=== PATIENT | male | born 1930 | race Caucasian/White ===

== ENCOUNTER 2016-08-28 17:04 | Emergency (ER) | payer MEDICARE, MEDICAID ==
[2016-08-28] MEDS ORDERED: EPINEPHrine 1MG/10ML SYRINGE 1.5IN ONE (17:05)
[2016-08-28] MEDS ORDERED: SODIUM BICARBONATE 8.4% INJ 50 ML SYRINGE ONE (17:05)
[2016-08-28] MEDS ORDERED: NOREPINEPHRINE 4 MG/4 ML AMP ONE (17:05)
[2016-08-28] MEDS ORDERED: ATROPINE SULF 1MG/10ML SYRINGE (J0461) ONE (17:05)
[2016-08-28 18:22] LABS: DIFF SLIDE NUMBER 332; MEAN CORPUSCULAR HEMOGLOBIN 28.3 pg (27.0-33.0); MEAN CORPUSCULAR HGB CONC 27.7 g/dl (32.0-36.5); MEAN CORPUSCULAR VOLUME 102.4 fl (80.0-96.0); RED CELL DISTRIBUTION WIDTH 13.2 % (11.5-14.5); WHITE BLOOD COUNT 4.9 K/mm3 (4.0-10.0)
--- NOTE | 2016-08-28 18:26 | ECGEPIP ---
Stationary ECG Study [facility] - ED Test Date: 2016-08-28 Pat Name: AD BECK Department: Room: - Gender: M Rating Officer: [facility] : 1930 Requested By: NIESHA Russo Order Number: [id number] Reading MD: Chris Connors Measurements Intervals [place] Rate: 79 P: RI: 0 QRS: 80 QRSD: 162 T: 96 QT: 461 QTc: 531 Interpretive Statements ATRIAL FIBRILLATION INTRAVENTRICULAR CONDUCTION DELAY MARKED ST ELEVATION, CONSIDER ANTERIOR INJURY ACUTE IA NO PRIORS Electronically Signed On 08-28-2016 18:26:27 EST by Chris oCnnors
[2016-08-28 18:43] LABS: CALCIUM LEVEL 7.8 MG/DL (8.8-10.2); CREATININE FOR GFR 2.33 MG/DL (0.70-1.30); GLOMERULAR FILTRATION RATE 28.5 (>35); MAGNESIUM LEVEL 3.6 MG/DL (1.8-2.4); PHOSPHORUS LEVEL 8.3 MG/DL (2.5-4.9)
[2016-08-28 18:49] LABS: PLATELET COUNT, AUTOMATED 69 k/mm3 (150-450); POTASSIUM SERUM 6.4 MEQ/L (3.5-5.1)
[2016-08-28 19:02] LABS: BANDS 3 % (< 11); CORRECTED WHITE BLOOD COUNT 4.5 K/mm3; NUCLEATED RED BLOOD CELL 10 % (0-0)
[2016-08-28 19:03] LABS: BURR CELLS 1+; HYPOCHROMASIA 1+; POIKILOCYTOSIS 1+; SCHISTOCYTES 1+; TOXIC VACUOLATION 1+
--- NOTE | 2016-08-28 19:39 | EDDOCDS ---
Physician Documentation [facility] Name: Gary Ash Age: 86 yrs Sex: Male : 1930 Arrival Date: 08/28/2016 Time: 17:04 Bed 2 Private MD: Disposition: Patient pronounced on 08/28/16 18:04 by Tyson Lamas. Impression: Cardiac arrest. Historical: - Allergies: PENICILLINS; - Social history: Smoking status: unknown if patient ever smoked tobacco. Patient is speech impaired. - Family history: Not pertinent. - : Unable to assess if pt is on anticoagulants. Unable to Verify Home Med List with the patient / caregiver. Vital Signs: 08/28 17:31 BP 41 / 21 (auto/); hs1 17:47 BP 67 / 18 (auto/); hs1 17:52 BP 66 / 28 (auto/); hs1 17:52 Pulse 88 MON; Pulse Ox 84% ; hs1 18:04 Pulse 0 MON; js13 Procedures: 18:41 Intubation: Ventilated with 100% NRB prior to procedure. Intubated orally using br1 Glidescope with 7.5 Fr. ETT. Successful on second attempt. Ventilated with Ambu bag. ventilator. Placement verified by CXR, CO2 detector w/ + color change, auscultating bilateral breath sounds, Patient tolerated well. 18:43 CPR: See CPR flow sheet. Initial patient assessment: unresponsive, pupils fixed & br1 dilated, no respiratory effort, intubated, Ambu ventilation, pulses present w/ compressions, The presenting cardiac rhythm is asystole. the patient was intubated prior to arrival, Compressions: began prior to arrival. Meds given: See Meds list. despite ED evaluation and treatment, the patient . CPR was stopped at 18:04. MDM: 17:53 Talent Acquisition Sourcer/Pulse Ox/q 30 min VS ordered. br1 17:53 IV Saline Lock ordered. br1 17:53 Rhythm Strip to chart ordered. br1 17:53 Undress patient appropriately for examination ordered. br1 17:53 -Blood Culture (Adults Only), peripheral from different site, or from device/port/PICC br1 etc. if present ordered. 17:53 NS 0.9% 1000 ml IV at bolus once ordered. br1 17:53 NS 0.9% 500 ml IV at bolus once ordered. br1 17:54 Basic Metabolic Profile Ordered. EDMS 17:54 CBC with Diff Ordered. EDMS 17:54 Cardiac Injury Profile Ordered. EDMS 17:54 Troponin Ordered. EDMS 17:54 -Blood Culture Ordered. EDMS 17:54 portable chest Ordered. EDMS 17:54 Norepinephrine (8mg/500mL D5W, 2mcg/min) 2 mcg/min IVPB at calculated rate continuous; br1 Titrate 2mcg/min q5min to maintain SBP > 90mmHg. Max rate 20 mcg/min ordered. 17:54 ECG WITH READING ER PHYS+CARDIAG ordered. EDMS 17:54 León ordered. br1 17:56 Urinalysis Ordered. EDMS 17:56 Urine Culture Ordered. EDMS 17:58 MAGNESIUM LEVEL Ordered. EDMS 17:58 PHOSPHOROUS LEVEL Ordered. EDMS 17:58 -Arterial Blood Gas Ordered. EDMS 18:04 EPINEPHrine (1:10,000) 1 mg IVP once ordered. hs1 18:04 EPINEPHrine (1:10,000) 1 mg IVP once ordered. hs1 18:04 EPINEPHrine (1:10,000) 1 mg IVP once ordered. hs1 18:04 EPINEPHrine (1:10,000) 1 mg IVP once ordered. hs1 18:04 EPINEPHrine (1:10,000) 1 mg IVP once ordered. hs1 18:04 EPINEPHrine (1:10,000) 1 mg IVP once ordered. hs1 18:04 Sodium Bicarbonate 1 amp IVP once ordered. hs1 18:04 Sodium Bicarbonate 1 amp IVP once ordered. hs1 18:04 Atropine 0.5 mg IVP once ordered. hs1 18:04 Atropine 0.5 mg IVP once ordered. hs1 18:04 Atropine 0.5 mg IVP once ordered. hs1 18:50 DIFFERENTIAL NO CHARGE Ordered. EDMS 18:51 PLATELET ESTIMATE Ordered. EDMS 18:55 Basic Metabolic Profile Reviewed. br1 18:55 CBC with Diff Reviewed. br1 18:55 Cardiac Injury Profile Reviewed. br1 18:55 Troponin Reviewed. br1 18:55 MAGNESIUM LEVEL Reviewed. br1 18:55 PHOSPHOROUS LEVEL Reviewed. br1 18:55 Fingerstick Blood Sugar Reviewed. br1 19:16 [facility] Payment Agreement was scanned into [employer] and attached to record. gjb 19:16 Financial registration complete. gjb Administered Medications: 15:32 Drug: Atropine 0.5 mg [atropine 0.1 mg/mL injection syringe (5 mL)] Route: IVP; Site: hs1 left forearm; 15:33 Drug: EPINEPHrine 1 mg [epinephrine 0.1 mg/mL injection syringe (10 mL)] Route: IVP; hs1 Site: left forearm; 15:33 Drug: Sodium Bicarbonate 1 amp Route: IVP; Site: left forearm; hs1 17:09 Drug: EPINEPHrine 1 mg [epinephrine 0.1 mg/mL injection syringe (10 mL)] Route: IVP; hs1 Site: left forearm; 17:14 Drug: EPINEPHrine 1 mg [epinephrine 0.1 mg/mL injection syringe (10 mL)] Route: IVP; hs1 Site: left forearm; 17:19 Drug: EPINEPHrine 1 mg [epinephrine 0.1 mg/mL injection syringe (10 mL)] Route: IVP; hs1 Site: left forearm; 17:23 Drug: EPINEPHrine 1 mg [epinephrine 0.1 mg/mL injection syringe (10 mL)] Route: IVP; hs1 Site: left forearm; 17:33 Drug: NS 0.9% 500 ml [sodium chloride 0.9 % intravenous solution] Route: IV; Rate: hs1 bolus; Site: right antecubital; 17:37 Drug: Atropine 0.5 mg [atropine 0.1 mg/mL injection syringe (5 mL)] Route: IVP; Site: hs1 left forearm; 17:46 Drug: EPINEPHrine 1 mg [epinephrine 0.1 mg/mL injection syringe (10 mL)] Route: IVP; hs1 Site: left forearm; 17:46 Drug: Sodium Bicarbonate 1 amp Route: IVP; Site: left antecubital; hs1 17:46 Drug: Atropine 0.5 mg [atropine 0.1 mg/mL injection syringe (5 mL)] Route: IVP; Site: hs1 right antecubital; 17:56 Drug: Norepinephrine (8mg/500mL D5W, 2mcg/min) 2 mcg/min [norepinephrine bitartrate 1 hs1 mg/mL intravenous solution] Route: IVPB; Rate: calculated rate; Site: left forearm; 17:57 Drug: NS 0.9% 1000 ml [sodium chloride 0.9 % intravenous solution] Route: IV; Rate: hs1 bolus; Site: left antecubital; Signatures: Dispatcher MedHost EDMS Tyson Lamas MD MD br1 Enriqueta Evans RN RN hs1 Rebeka ClemonsRN RN js13 Tonie Kellogg KimRN RN kas2 The chart was reviewed and I authenticate all verbal orders and agree with the evaluation and treatment provided.Corrections: (The following items were deleted from the chart) 17:58 17:54 MAGNESIUM LEVEL+LAB ordered. EDMS EDMS 17:58 17:54 PHOSPHOROUS LEVEL+LAB ordered. EDMS EDMS Attachments: 19:16 [facility] Payment Agreement gjb MTDD
--- NOTE | 2016-08-28 19:39 | EDDOCDS ---
Nurse's Notes [facility] Name: Gary Ash Age: 86 yrs Sex: Male : 1930 Arrival Date: 08/28/2016 Time: 17:04 Bed 2 Private MD: Diagnosis: Cardiac arrest Presentation: 08/28 17:08 Presenting complaint: EMS states: found unresponsive at home RR of 40. Public health hs1 nurse was type inspector of 911. Per EMS Nurse stated fever of 102 earlier today. Patient unresponsive and run of Vtach noted at 1645 per EMS. Method of arrival: Ambulance: direct to room. Care prior to arrival: See EMS report. Compressions began prior to arrival. 17:08 Acuity: KEYANNA Level 1 hs1 Historical: - Allergies: PENICILLINS; - Social history: Smoking status: unknown if patient ever smoked tobacco. Patient is speech impaired. - Family history: Not pertinent. - : Unable to assess if pt is on anticoagulants. Unable to Verify Home Med List with the patient / caregiver. Screenin:23 Abuse/DV Screen: Unable to Assess. Nutritional screening: Unable to Assess. hs1 17:43 Screening information is obtained from information given by nurses and caregivers. . hs1 Fall risk: Unable to Assess. Assistance ADL's: Requires assistance with. Abuse/DV Screen: The patient / caregiver reports he/she is: pt cannot be assessed for living situation at this time. Advance Directives: Unable to assess Advance Directive status due to pt condition. home support is adequate. Assessment: 17:05 CPR assessment: unresponsive. Cardiac rhythm is asystole. Neurological: No deficits hs1 noted. 17:09 CPR assessment: unresponsive, pulses present w/ compressions. Cardiac rhythm is hs1 asystole. 17:12 CPR assessment: no respiratory effort, intubated, Ambu ventilation, pulses present w/ hs1 compressions. Cardiac rhythm is asystole. 17:14 CPR assessment: unresponsive, pupils fixed & dilated, no respiratory effort, intubated, hs1 Ambu ventilation, pulses present w/ compressions. Cardiac rhythm is asystole. 17:19 CPR assessment: pupils fixed & dilated, no respiratory effort, intubated, Ambu hs1 ventilation, pulses present w/ compressions. Cardiac rhythm is asystole. Cardiovascular: Rhythm is PEA. Derm: Skin is dusky, pale. 17:23 CPR assessment: unresponsive, Ambu ventilation, pulses present w/ compressions. Cardiac hs1 rhythm is PEA. Cardiovascular: Edema is 3+ to left ankle, left foot, left toes, right ankle, right foot and right toes pitting to left ankle, left foot, left toes, right ankle, right foot and right toes Rhythm is PEA. 17:28 CPR assessment: unresponsive, pupils fixed & dilated, no respiratory effort, intubated, hs1 pulses present w/ compressions. Cardiac rhythm is PEA. Neurological: Level of Consciousness is unresponsive. 17:33 CPR assessment: no respiratory effort, intubated, Ambu ventilation, pulses present w/ hs1 compressions. Cardiac rhythm is Sinus Bradycardia. Neurological: Level of Consciousness is unresponsive. Respiratory: Airway via oral intubation. Derm: Skin is mottled, pale. 17:33 Cardiovascular: Pulses are palpable in carotid. hs1 17:37 Cardiac rhythm is Sinus Rhythm. Neurological: Level of Consciousness is unresponsive. hs1 Cardiovascular: Rhythm is sinus rhythm. Derm: Skin is dusky, mottled. 17:44 CPR assessment: pupils fixed & dilated, no respiratory effort, intubated, Ambu hs1 ventilation, pulses present w/ compressions. Cardiovascular: Pulses are palpable in carotid. 17:49 Cardiac rhythm is Sinus Bradycardia. Neurological: Level of Consciousness is hs1 unresponsive. Respiratory: Airway via oral intubation. Derm: Skin is dusky, mottled. 17:52 Cardiac rhythm is Cardiac rhythm is Sinus Rhythm. hs1 17:55 General: Appears emaciated. Cardiovascular: Rhythm is irregular. Respiratory: Airway hs1 via oral intubation. 18:04 General: Appears emaciated. General: TIME OF 1804. Neurological: Level of js13 Consciousness is unresponsive. Cardiovascular: Rhythm is asystole. Respiratory: Airway via oral intubation. Derm: Skin is dusky, mottled, pale. 19:07 General: Verbal report given by Khalida Hernandez RN, Assumed care of patient at this time.. kas2 Vital Signs: 17:31 BP 41 / 21 (auto/); hs1 17:47 BP 67 / 18 (auto/); hs1 17:52 BP 66 / 28 (auto/); hs1 17:52 Pulse 88 MON; Pulse Ox 84% ; hs1 18:04 Pulse 0 MON; js13 Vitals: 17:56 Log In Time N/A - ambulance arrival. hs1 ED Course: 17:05 Patient visited by Charity Enriquez, Etl Analyst. lbd 17:05 Rebeka Clemons,RN is Primary Nurse. lbd 17:05 Patient moved to Waiting lbd 17:05 Patient moved to 2 lbd 17:12 Assist provider with intubation with 7.5 Fr. ETT. via oral route. Set up intubation hs1 tray. Intubated by Niesha Lamas MD Placement verified by CO2 detector w/ + color change, auscultating bilateral breath sounds. 17:12 Maintain field IV. Dressing intact. Good blood return noted. Site clean & dry. Gauge & js13 site: 20 GAUGE RAC. 17:15 Inserted saline lock: 14 gauge 18 gauge in left forearm antecubital area and blood js13 collected. The patient tolerated the procedure well. BY MATT DEAN RN. 17:29 Niesha Lamas MD is Attending Physician. br1 17:29 Patient visited by Niesha Lamas MD. br1 18:16 Niesha Lamas MD is Pronouncing Provider. br1 18:26 EKG done. (by ED staff). Reviewed by Niesha Lamas MD. tmm1 19:02 EKG-ADULT Returned. EDMS 19:06 Rula Kumar RN is Primary Nurse. kas2 19:07 Patient visited by Rula Kumar RN. kas2 19:16 [facility] Payment Agreement was scanned into [employer] and attached to record. gjb 19:22 Primary Nurse role handed off by Rebeka Clemons,HARISH kb5 Administered Medications: 15:32 Drug: Atropine 0.5 mg [atropine 0.1 mg/mL injection syringe (5 mL)] Route: IVP; Site: hs1 left forearm; 15:33 Drug: EPINEPHrine 1 mg [epinephrine 0.1 mg/mL injection syringe (10 mL)] Route: IVP; hs1 Site: left forearm; 15:33 Drug: Sodium Bicarbonate 1 amp Route: IVP; Site: left forearm; hs1 17:09 Drug: EPINEPHrine 1 mg [epinephrine 0.1 mg/mL injection syringe (10 mL)] Route: IVP; hs1 Site: left forearm; 17:14 Drug: EPINEPHrine 1 mg [epinephrine 0.1 mg/mL injection syringe (10 mL)] Route: IVP; hs1 Site: left forearm; 17:19 Drug: EPINEPHrine 1 mg [epinephrine 0.1 mg/mL injection syringe (10 mL)] Route: IVP; hs1 Site: left forearm; 17:23 Drug: EPINEPHrine 1 mg [epinephrine 0.1 mg/mL injection syringe (10 mL)] Route: IVP; hs1 Site: left forearm; 17:33 Drug: NS 0.9% 500 ml [sodium chloride 0.9 % intravenous solution] Route: IV; Rate: hs1 bolus; Site: right antecubital; 17:37 Drug: Atropine 0.5 mg [atropine 0.1 mg/mL injection syringe (5 mL)] Route: IVP; Site: hs1 left forearm; 17:46 Drug: EPINEPHrine 1 mg [epinephrine 0.1 mg/mL injection syringe (10 mL)] Route: IVP; hs1 Site: left forearm; 17:46 Drug: Sodium Bicarbonate 1 amp Route: IVP; Site: left antecubital; hs1 17:46 Drug: Atropine 0.5 mg [atropine 0.1 mg/mL injection syringe (5 mL)] Route: IVP; Site: hs1 right antecubital; 17:56 Drug: Norepinephrine (8mg/500mL D5W, 2mcg/min) 2 mcg/min [norepinephrine bitartrate 1 hs1 mg/mL intravenous solution] Route: IVPB; Rate: calculated rate; Site: left forearm; 17:57 Drug: NS 0.9% 1000 ml [sodium chloride 0.9 % intravenous solution] Route: IV; Rate: hs1 bolus; Site: left antecubital; RT: 18:12 CPR Time: 60Minutes. cs15 Order Results: Lab Order: Basic Metabolic Profile; SPEC'M 08/28/16 17:40 Test: GLUCOSE, FASTING; Value: 98; Range: 83-110; Units: MG/DL; Status: F Test: BLOOD UREA NITROGEN; Value: 96; Range: 7-18; Abnormal: Above high normal; Units: MG/DL; Status: F Test: CREATININE FOR GFR; Value: 2.33; Range: 0.70-1.30; Abnormal: Above high normal; Units: MG/DL; Status: F Test: GLOMERULAR FILTRATION RATE; Value: 28.5; Range: >35; Abnormal: Below low normal; Status: F Test: SODIUM LEVEL; Value: 165; Range: 136-145; Abnormal: Above upper panic limits; Units: MEQ/L; Status: F Test: POTASSIUM SERUM; Value: 6.4; Range: 3.5-5.1; Abnormal: Above upper panic limits; Units: MEQ/L; Status: F Test: CHLORIDE LEVEL; Value: 127; Range: 98-107; Abnormal: Above high normal; Units: MEQ/L; Status: F Test: CARBON DIOXIDE LEVEL; Value: 18; Range: 21-32; Abnormal: Below low normal; Units: MEQ/L; Status: F Test: ANION GAP; Value: 20; Range: 8-16; Abnormal: Above high normal; Units: MEQ/L; Status: F Test: CALCIUM LEVEL; Value: 7.8; Range: 8.8-10.2; Abnormal: Below low normal; Units: MG/DL; Status: F Test Note: ; Units are mL/min/1.73 m2 Chronic Kidney Disease Staging per NKF: Stage I & II GFR >=60 Normal to Mildly Decreased Stage III GFR 30-59 Moderately Decreased Stage IV GFR 15-29 Severely Decreased Stage V GFR <15 Very Little GFR Left ESRD GFR <15 on INDUSTRIAL ORGANIZATIONAL PSYCHOLOGIST Lab Order: CBC with Diff; SPEC'M 08/28/16 17:40 Test: WHITE BLOOD COUNT; Value: 4.9; Range: 4.0-10.0; Units: K/mm3; Status: F Test: RED BLOOD COUNT; Value: 3.83; Range: 4.30-6.10; Abnormal: Below low normal; Units: M/mm3; Status: F Test: HEMOGLOBIN; Value: 10.8; Range: 14.0-18.0; Abnormal: Below low normal; Units: g/dl; Status: F Test: HEMATOCRIT; Value: 39.2; Range: 42.0-52.0; Abnormal: Below low normal; Units: %; Status: F Test: MEAN CORPUSCULAR VOLUME; Value: 102.4; Range: 80.0-96.0; Abnormal: Above high normal; Units: fl; Status: F Test: MEAN CORPUSCULAR HEMOGLOBIN; Value: 28.3; Range: 27.0-33.0; Units: pg; Status: F Test: MEAN CORPUSCULAR HGB CONC; Value: 27.7; Range: 32.0-36.5; Abnormal: Below low normal; Units: g/dl; Status: F Test: RED CELL DISTRIBUTION WIDTH; Value: 13.2; Range: 11.5-14.5; Units: %; Status: F Test: PLATELET COUNT, AUTOMATED; Value: 69; Range: 150-450; Abnormal: Below low normal; Units: k/mm3; Status: F Test: CORRECTED WHITE BLOOD COUNT; Value: 4.5; Units: K/mm3; Status: F Test: RED BLOOD COUNT; Value: 3.83; Range: 4.30-6.10; Abnormal: Below low normal; Units: M/mm3; Status: F Test: HEMOGLOBIN; Value: 10.8; Range: 14.0-18.0; Abnormal: Below low normal; Units: g/dl; Status: F Test: HEMATOCRIT; Value: 39.2; Range: 42.0-52.0; Abnormal: Below low normal; Units: %; Status: F Test: MEAN CORPUSCULAR VOLUME; Value: 102.4; Range: 80.0-96.0; Abnormal: Above high normal; Units: fl; Status: F Test: MEAN CORPUSCULAR HEMOGLOBIN; Value: 28.3; Range: 27.0-33.0; Units: pg; Status: F Test: MEAN CORPUSCULAR HGB CONC; Value: 27.7; Range: 32.0-36.5; Abnormal: Below low normal; Units: g/dl; Status: F Test: RED CELL DISTRIBUTION WIDTH; Value: 13.2; Range: 11.5-14.5; Units: %; Status: F Test: PLATELET COUNT, AUTOMATED; Value: 69; Range: 150-450; Abnormal: Below low normal; Units: k/mm3; Status: F Test: NEUTROPHILS; Value: 34; Range: 35-75; Abnormal: Below low normal; Units: %; Status: F Test: BANDS; Value: 3; Range: < 11; Units: %; Status: F Test: LYMPHOCYTES; Value: 58; Range: 16-52; Abnormal: Above high normal; Units: %; Status: F Test: MONOCYTES; Value: 2; Range: 0-8; Units: %; Status: F Test: ATYPICAL LYMPH; Value: 3; Range: 0-5; Units: %; Status: F Test: NUCLEATED RED BLOOD CELL; Value: 10; Range: 0-0; Abnormal: Above high normal; Units: %; Status: F Test: HYPOCHROMASIA; Value: 1+; Status: F Test: POIKILOCYTOSIS; Value: 1+; Status: F Test: SCHISTOCYTES; Value: 1+; Status: F Test: ESMER CELLS; Value: 1+; Status: F Test: TOXIC VACUOLATION; Value: 1+; Status: F Lab Order: Cardiac Injury Profile; [facility] 08/28/16 17:40 Test: CPK CREATINE PHOSPHOKINASE; Value: 191; Range: 39-308; Units: U/L; Status: F Test: CK-MB VALUE MASS; Value: 4.9; Range: 0.0-3.6; Abnormal: Above high normal; Units: NG/ML; Status: F Test: MB/CK RELATIVE INDEX; Value: 2.56; Range: < OR =4; Status: F Test Note: ; DIAGNOSIS CRITERIA MMB ng/ml Relative Index (RI) NON-AMI < or = 5 N/A REINOSO ZONE > 5 < or = 4 AMI > 5 > 4 Lab Order: Troponin; [facility] 08/28/16 17:40 Test: TROPONIN I; Value: 1.88; Range: < 0.10; Abnormal: Above upper panic limits; Units: NG/ML; Status: F Test Note: ; Troponin I Reference Interval for Siemens fflick LOCI: 99th Percentile= 0.00-0.045 ng/ml Risk Stratification: <= 0.10 ng/ml Decreased Risk for Adverse Clinical Events. 0.10-1.50 ng/ml Increased Risk for Adverse Clinical Events. Evaluation of additional criterion and/or repeat testing in 2-6 hours is suggested to rule out myocardial damage. >= 1.50 ng/ml Indicative of Myocardial Injury. Lab Order: MAGNESIUM LEVEL; [facility] 08/28/16 17:40 Test: MAGNESIUM LEVEL; Value: 3.6; Range: 1.8-2.4; Abnormal: Above high normal; Units: MG/DL; Status: F Lab Order: PHOSPHOROUS LEVEL; [facility] 08/28/16 17:40 Test: PHOSPHORUS LEVEL; Value: 8.3; Range: 2.5-4.9; Abnormal: Above high normal; Units: MG/DL; Status: F Lab Order: Fingerstick Blood Sugar; SPEC'M 08/28/16 17:29 Test: BEDSIDE GLUCOSE; Value: 94; Range: 83-110; Units: MG/DL; Status: F Lab Order: PLATELET ESTIMATE; SPEC'M 08/28/16 17:40 Test: PLATELET ESTIMATE; Value: MARKED DECREASE; Range: NORMAL; Status: F Radiology Order: EKG-ADULT Test: EKG-ADULT REASON FOR EXAMINATION: dysrhythmia; Stationary ECG Study; [facility] - ED; ; Test Date: 2016-08-28; Pat Name: GARY ASH Department:; Room: -; Gender: M 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 js13 17:43 Code Team Members : Niesha Lamas MD. hs1 18:17 Patient . br1 19:35 Discharge Assessment: Patient in ER department. Rhythm strips are placed in the [facility] patient chart. Outcome Patient . Patient : Time of 18:17 Pronounced by Niesha Lamas MD [place] [facility] [place] Condition: . 19:37 Patient left the ED. [facility] Signatures: Dispatcher Med[employer] EDMS Charity Enriquez, Etl Analyst Unit Andre Peres, AUTOMOBILE CLUB INFORMATION CLERK AUTOMOBILE CLUB INFORMATION CLERK [id number] Niesha Lamas MD MD br1 Enriqueta Evans RN RN hs1 Rebeka ClemonsRN RN js13 Rufina, Emma, AUTOMOBILE CLUB INFORMATION CLERK AUTOMOBILE CLUB INFORMATION CLERK [email or web address] Joel Barrientos,RT RT [email or web address] Tonie Kellogg Kim,RN RN kas2 Corrections: (The following items were deleted from the chart) 17:48 17:33 Cardiac rhythm is PEA hs1 hs1 MTDD
--- NOTE | 2016-08-29 19:01 | REP ---
CHEST, ONE VIEW: HISTORY: Cardiac arrest. Patchy densities are present in the lung, consistent with bilateral infiltrates or edema. The heart is upper limits of normal in size. The pulmonary vasculature is indistinct. An ET tube is present at the nubia. IMPRESSION: 1. Bilateral infiltrates or edema. 2. An ET tube is present at the level of the nubia. Signed by Nate Herron MD 08/30/2016 08:28 A
--- NOTE | 2016-08-30 20:38 | EDDOCDS ---
Physician Documentation [facility] Name: Gary Ash Age: 86 yrs Sex: Male : 1930 Arrival Date: 08/28/2016 Time: 17:04 Bed 2 Private MD: Disposition: Patient pronounced on 08/28/16 18:04 by Tyson Lamas. Impression: Cardiac arrest. Historical: - Allergies: PENICILLINS; - Social history: Smoking status: unknown if patient ever smoked tobacco. Patient is speech impaired. - Family history: Not pertinent. - : Unable to assess if pt is on anticoagulants. Unable to Verify Home Med List with the patient / caregiver. Vital Signs: 08/28 17:31 BP 41 / 21 (auto/); hs1 17:47 BP 67 / 18 (auto/); hs1 17:52 BP 66 / 28 (auto/); hs1 17:52 Pulse 88 MON; Pulse Ox 84% ; hs1 18:04 Pulse 0 MON; js13 Procedures: 18:41 Intubation: Ventilated with 100% NRB prior to procedure. Intubated orally using br1 Glidescope with 7.5 Fr. ETT. Successful on second attempt. Ventilated with Ambu bag. ventilator. Placement verified by CXR, CO2 detector w/ + color change, auscultating bilateral breath sounds, Patient tolerated well. 18:43 CPR: See CPR flow sheet. Initial patient assessment: unresponsive, pupils fixed & br1 dilated, no respiratory effort, intubated, Ambu ventilation, pulses present w/ compressions, The presenting cardiac rhythm is asystole. the patient was intubated prior to arrival, Compressions: began prior to arrival. Meds given: See Meds list. despite ED evaluation and treatment, the patient . CPR was stopped at 18:04. MDM: 17:53 Coordinator Cardiopulmonary Services/Pulse Ox/q 30 min VS ordered. br1 17:53 IV Saline Lock ordered. br1 17:53 Rhythm Strip to chart ordered. br1 17:53 Undress patient appropriately for examination ordered. br1 17:53 -Blood Culture (Adults Only), peripheral from different site, or from device/port/PICC br1 etc. if present ordered. 17:53 NS 0.9% 1000 ml IV at bolus once ordered. br1 17:53 NS 0.9% 500 ml IV at bolus once ordered. br1 17:54 Basic Metabolic Profile Ordered. EDMS 17:54 CBC with Diff Ordered. EDMS 17:54 Cardiac Injury Profile Ordered. EDMS 17:54 Troponin Ordered. EDMS 17:54 -Blood Culture Ordered. EDMS 17:54 portable chest Ordered. EDMS 17:54 Norepinephrine (8mg/500mL D5W, 2mcg/min) 2 mcg/min IVPB at calculated rate continuous; br1 Titrate 2mcg/min q5min to maintain SBP > 90mmHg. Max rate 20 mcg/min ordered. 17:54 ECG WITH READING ER PHYS+CARDIAG ordered. EDMS 17:54 León ordered. br1 17:56 Urinalysis Ordered. EDMS 17:56 Urine Culture Ordered. EDMS 17:58 MAGNESIUM LEVEL Ordered. EDMS 17:58 PHOSPHOROUS LEVEL Ordered. EDMS 17:58 -Arterial Blood Gas Ordered. EDMS 18:04 EPINEPHrine (1:10,000) 1 mg IVP once ordered. hs1 18:04 EPINEPHrine (1:10,000) 1 mg IVP once ordered. hs1 18:04 EPINEPHrine (1:10,000) 1 mg IVP once ordered. hs1 18:04 EPINEPHrine (1:10,000) 1 mg IVP once ordered. hs1 18:04 EPINEPHrine (1:10,000) 1 mg IVP once ordered. hs1 18:04 EPINEPHrine (1:10,000) 1 mg IVP once ordered. hs1 18:04 Sodium Bicarbonate 1 amp IVP once ordered. hs1 18:04 Sodium Bicarbonate 1 amp IVP once ordered. hs1 18:04 Atropine 0.5 mg IVP once ordered. hs1 18:04 Atropine 0.5 mg IVP once ordered. hs1 18:04 Atropine 0.5 mg IVP once ordered. hs1 18:50 DIFFERENTIAL NO CHARGE Ordered. EDMS 18:51 PLATELET ESTIMATE Ordered. EDMS 18:55 Basic Metabolic Profile Reviewed. br1 18:55 CBC with Diff Reviewed. br1 18:55 Cardiac Injury Profile Reviewed. br1 18:55 Troponin Reviewed. br1 18:55 MAGNESIUM LEVEL Reviewed. br1 18:55 PHOSPHOROUS LEVEL Reviewed. br1 18:55 Fingerstick Blood Sugar Reviewed. br1 19:16 [facility] Payment Agreement was scanned into [employer] and attached to record. [facility] 19:16 Financial registration complete. [facility] 08/29 13:02 Other: CHECKLIST FOR PT was scanned into [employer] and attached to record. 13:02 T-Sheet-- Draft Copy was scanned into [employer] and attached to record. gb 13:02 ECG/EKG was scanned into [employer] and attached to record. gb 13:03 Rhythm Strip was scanned into [employer] and attached to record. gb 13:03 Radiology Report was scanned into [employer] and attached to record. gb Administered Medications: 08/28 15:32 Drug: Atropine 0.5 mg [atropine 0.1 mg/mL injection syringe (5 mL)] Route: IVP; Site: hs1 left forearm; 15:33 Drug: EPINEPHrine 1 mg [epinephrine 0.1 mg/mL injection syringe (10 mL)] Route: IVP; hs1 Site: left forearm; 15:33 Drug: Sodium Bicarbonate 1 amp Route: IVP; Site: left forearm; hs1 17:09 Drug: EPINEPHrine 1 mg [epinephrine 0.1 mg/mL injection syringe (10 mL)] Route: IVP; hs1 Site: left forearm; 17:14 Drug: EPINEPHrine 1 mg [epinephrine 0.1 mg/mL injection syringe (10 mL)] Route: IVP; hs1 Site: left forearm; 17:19 Drug: EPINEPHrine 1 mg [epinephrine 0.1 mg/mL injection syringe (10 mL)] Route: IVP; hs1 Site: left forearm; 17:23 Drug: EPINEPHrine 1 mg [epinephrine 0.1 mg/mL injection syringe (10 mL)] Route: IVP; hs1 Site: left forearm; 17:33 Drug: NS 0.9% 500 ml [sodium chloride 0.9 % intravenous solution] Route: IV; Rate: hs1 bolus; Site: right antecubital; 17:37 Drug: Atropine 0.5 mg [atropine 0.1 mg/mL injection syringe (5 mL)] Route: IVP; Site: hs1 left forearm; 17:46 Drug: EPINEPHrine 1 mg [epinephrine 0.1 mg/mL injection syringe (10 mL)] Route: IVP; hs1 Site: left forearm; 17:46 Drug: Sodium Bicarbonate 1 amp Route: IVP; Site: left antecubital; hs1 17:46 Drug: Atropine 0.5 mg [atropine 0.1 mg/mL injection syringe (5 mL)] Route: IVP; Site: hs1 right antecubital; 17:56 Drug: Norepinephrine (8mg/500mL D5W, 2mcg/min) 2 mcg/min [norepinephrine bitartrate 1 hs1 mg/mL intravenous solution] Route: IVPB; Rate: calculated rate; Site: left forearm; 17:57 Drug: NS 0.9% 1000 ml [sodium chloride 0.9 % intravenous solution] Route: IV; Rate: hs1 bolus; Site: left antecubital; Signatures: Dispatcher [employer] EDMS Rosalva Green, Reg Reg gb Tyson Lamas MD MD br1 Enriqueta Evans RN RN hs1 Rebeka Clemons RN RN [id number] Tonie Kellogg Kim, RN RN kas2 The chart was reviewed and I authenticate all verbal orders and agree with the evaluation and treatment provided.Corrections: (The following items were deleted from the chart) 17:58 17:54 MAGNESIUM LEVEL+LAB ordered. EDMS EDMS 17:58 17:54 PHOSPHOROUS LEVEL+LAB ordered. EDMS EDMS Attachments: 19:16 [facility] Payment Agreement gjb 13:02 T-Sheet-- Draft Copy gb 13:02 ECG/EKG Chart Complete MTDD
--- NOTE | 2016-08-30 20:38 | EDDOCDS ---
Physician Documentation [facility] Name: Gary Ash Age: 86 yrs Sex: Male : 1930 Arrival Date: 08/28/2016 Time: 17:04 Bed 2 Private MD: Disposition: Patient pronounced on 08/28/16 18:04 by Tyson Lamas. Impression: Cardiac arrest. Historical: - Allergies: PENICILLINS; - Social history: Smoking status: unknown if patient ever smoked tobacco. Patient is speech impaired. - Family history: Not pertinent. - : Unable to assess if pt is on anticoagulants. Unable to Verify Home Med List with the patient / caregiver. Vital Signs: 08/28 17:31 BP 41 / 21 (auto/); hs1 17:47 BP 67 / 18 (auto/); hs1 17:52 BP 66 / 28 (auto/); hs1 17:52 Pulse 88 MON; Pulse Ox 84% ; hs1 18:04 Pulse 0 MON; js13 Procedures: 18:41 Intubation: Ventilated with 100% NRB prior to procedure. Intubated orally using br1 Glidescope with 7.5 Fr. ETT. Successful on second attempt. Ventilated with Ambu bag. ventilator. Placement verified by CXR, CO2 detector w/ + color change, auscultating bilateral breath sounds, Patient tolerated well. 18:43 CPR: See CPR flow sheet. Initial patient assessment: unresponsive, pupils fixed & br1 dilated, no respiratory effort, intubated, Ambu ventilation, pulses present w/ compressions, The presenting cardiac rhythm is asystole. the patient was intubated prior to arrival, Compressions: began prior to arrival. Meds given: See Meds list. despite ED evaluation and treatment, the patient . CPR was stopped at 18:04. MDM: 17:53 Barrel Cutter/Pulse Ox/q 30 min VS ordered. br1 17:53 IV Saline Lock ordered. br1 17:53 Rhythm Strip to chart ordered. br1 17:53 Undress patient appropriately for examination ordered. br1 17:53 -Blood Culture (Adults Only), peripheral from different site, or from device/port/PICC br1 etc. if present ordered. 17:53 NS 0.9% 1000 ml IV at bolus once ordered. br1 17:53 NS 0.9% 500 ml IV at bolus once ordered. br1 17:54 Basic Metabolic Profile Ordered. EDMS 17:54 CBC with Diff Ordered. EDMS 17:54 Cardiac Injury Profile Ordered. EDMS 17:54 Troponin Ordered. EDMS 17:54 -Blood Culture Ordered. EDMS 17:54 portable chest Ordered. EDMS 17:54 Norepinephrine (8mg/500mL D5W, 2mcg/min) 2 mcg/min IVPB at calculated rate continuous; br1 Titrate 2mcg/min q5min to maintain SBP > 90mmHg. Max rate 20 mcg/min ordered. 17:54 ECG WITH READING ER PHYS+CARDIAG ordered. EDMS 17:54 León ordered. br1 17:56 Urinalysis Ordered. EDMS 17:56 Urine Culture Ordered. EDMS 17:58 MAGNESIUM LEVEL Ordered. EDMS 17:58 PHOSPHOROUS LEVEL Ordered. EDMS 17:58 -Arterial Blood Gas Ordered. EDMS 18:04 EPINEPHrine (1:10,000) 1 mg IVP once ordered. hs1 18:04 EPINEPHrine (1:10,000) 1 mg IVP once ordered. hs1 18:04 EPINEPHrine (1:10,000) 1 mg IVP once ordered. hs1 18:04 EPINEPHrine (1:10,000) 1 mg IVP once ordered. hs1 18:04 EPINEPHrine (1:10,000) 1 mg IVP once ordered. hs1 18:04 EPINEPHrine (1:10,000) 1 mg IVP once ordered. hs1 18:04 Sodium Bicarbonate 1 amp IVP once ordered. hs1 18:04 Sodium Bicarbonate 1 amp IVP once ordered. hs1 18:04 Atropine 0.5 mg IVP once ordered. hs1 18:04 Atropine 0.5 mg IVP once ordered. hs1 18:04 Atropine 0.5 mg IVP once ordered. hs1 18:50 DIFFERENTIAL NO CHARGE Ordered. EDMS 18:51 PLATELET ESTIMATE Ordered. EDMS 18:55 Basic Metabolic Profile Reviewed. br1 18:55 CBC with Diff Reviewed. br1 18:55 Cardiac Injury Profile Reviewed. br1 18:55 Troponin Reviewed. br1 18:55 MAGNESIUM LEVEL Reviewed. br1 18:55 PHOSPHOROUS LEVEL Reviewed. br1 18:55 Fingerstick Blood Sugar Reviewed. br1 19:16 [facility] Payment Agreement was scanned into [employer] and attached to record. [facility] 19:16 Financial registration complete. [facility] 08/29 13:02 Other: CHECKLIST FOR PT was scanned into [employer] and attached to record. 13:02 T-Sheet-- Draft Copy was scanned into [employer] and attached to record. gb 13:02 ECG/EKG was scanned into [employer] and attached to record. gb 13:03 Rhythm Strip was scanned into [employer] and attached to record. gb 13:03 Radiology Report was scanned into [employer] and attached to record. gb Administered Medications: 08/28 15:32 Drug: Atropine 0.5 mg [atropine 0.1 mg/mL injection syringe (5 mL)] Route: IVP; Site: hs1 left forearm; 15:33 Drug: EPINEPHrine 1 mg [epinephrine 0.1 mg/mL injection syringe (10 mL)] Route: IVP; hs1 Site: left forearm; 15:33 Drug: Sodium Bicarbonate 1 amp Route: IVP; Site: left forearm; hs1 17:09 Drug: EPINEPHrine 1 mg [epinephrine 0.1 mg/mL injection syringe (10 mL)] Route: IVP; hs1 Site: left forearm; 17:14 Drug: EPINEPHrine 1 mg [epinephrine 0.1 mg/mL injection syringe (10 mL)] Route: IVP; hs1 Site: left forearm; 17:19 Drug: EPINEPHrine 1 mg [epinephrine 0.1 mg/mL injection syringe (10 mL)] Route: IVP; hs1 Site: left forearm; 17:23 Drug: EPINEPHrine 1 mg [epinephrine 0.1 mg/mL injection syringe (10 mL)] Route: IVP; hs1 Site: left forearm; 17:33 Drug: NS 0.9% 500 ml [sodium chloride 0.9 % intravenous solution] Route: IV; Rate: hs1 bolus; Site: right antecubital; 17:37 Drug: Atropine 0.5 mg [atropine 0.1 mg/mL injection syringe (5 mL)] Route: IVP; Site: hs1 left forearm; 17:46 Drug: EPINEPHrine 1 mg [epinephrine 0.1 mg/mL injection syringe (10 mL)] Route: IVP; hs1 Site: left forearm; 17:46 Drug: Sodium Bicarbonate 1 amp Route: IVP; Site: left antecubital; hs1 17:46 Drug: Atropine 0.5 mg [atropine 0.1 mg/mL injection syringe (5 mL)] Route: IVP; Site: hs1 right antecubital; 17:56 Drug: Norepinephrine (8mg/500mL D5W, 2mcg/min) 2 mcg/min [norepinephrine bitartrate 1 hs1 mg/mL intravenous solution] Route: IVPB; Rate: calculated rate; Site: left forearm; 17:57 Drug: NS 0.9% 1000 ml [sodium chloride 0.9 % intravenous solution] Route: IV; Rate: hs1 bolus; Site: left antecubital; Signatures: Dispatcher [employer] EDMS Rosalva Green, Reg Reg gb Tyson Lamas MD MD br1 Enriqueta Evans RN RN hs1 Rebeka Clemons RN RN [id number] Tonie Kellogg Kim, RN RN kas2 The chart was reviewed and I authenticate all verbal orders and agree with the evaluation and treatment provided.Corrections: (The following items were deleted from the chart) 17:58 17:54 MAGNESIUM LEVEL+LAB ordered. EDMS EDMS 17:58 17:54 PHOSPHOROUS LEVEL+LAB ordered. EDMS EDMS Attachments: 19:16 [facility] Payment Agreement gjb 13:02 T-Sheet-- Draft Copy gb 13:02 ECG/EKG Chart Complete MTDD
--- NOTE | 2016-08-30 20:38 | EDDOCDS ---
Nurse's Notes [facility] Name: Gary Ash Age: 86 yrs Sex: Male : 1930 Arrival Date: 08/28/2016 Time: 17:04 Bed 2 Private MD: Diagnosis: Cardiac arrest Presentation: 08/28 17:08 Presenting complaint: EMS states: found unresponsive at home RR of 40. Public health hs1 nurse was pillow agent of 911. Per EMS Nurse stated fever of 102 earlier today. Patient unresponsive and run of Vtach noted at 1645 per EMS. Method of arrival: Ambulance: direct to room. Care prior to arrival: See EMS report. Compressions began prior to arrival. 17:08 Acuity: KEYANNA Level 1 hs1 Historical: - Allergies: PENICILLINS; - Social history: Smoking status: unknown if patient ever smoked tobacco. Patient is speech impaired. - Family history: Not pertinent. - : Unable to assess if pt is on anticoagulants. Unable to Verify Home Med List with the patient / caregiver. Screenin:23 Abuse/DV Screen: Unable to Assess. Nutritional screening: Unable to Assess. hs1 17:43 Screening information is obtained from information given by nurses and caregivers. . hs1 Fall risk: Unable to Assess. Assistance ADL's: Requires assistance with. Abuse/DV Screen: The patient / caregiver reports he/she is: pt cannot be assessed for living situation at this time. Advance Directives: Unable to assess Advance Directive status due to pt condition. home support is adequate. Assessment: 17:05 CPR assessment: unresponsive. Cardiac rhythm is asystole. Neurological: No deficits hs1 noted. 17:09 CPR assessment: unresponsive, pulses present w/ compressions. Cardiac rhythm is hs1 asystole. 17:12 CPR assessment: no respiratory effort, intubated, Ambu ventilation, pulses present w/ hs1 compressions. Cardiac rhythm is asystole. 17:14 CPR assessment: unresponsive, pupils fixed & dilated, no respiratory effort, intubated, hs1 Ambu ventilation, pulses present w/ compressions. Cardiac rhythm is asystole. 17:19 CPR assessment: pupils fixed & dilated, no respiratory effort, intubated, Ambu hs1 ventilation, pulses present w/ compressions. Cardiac rhythm is asystole. Cardiovascular: Rhythm is PEA. Derm: Skin is dusky, pale. 17:23 CPR assessment: unresponsive, Ambu ventilation, pulses present w/ compressions. Cardiac hs1 rhythm is PEA. Cardiovascular: Edema is 3+ to left ankle, left foot, left toes, right ankle, right foot and right toes pitting to left ankle, left foot, left toes, right ankle, right foot and right toes Rhythm is PEA. 17:28 CPR assessment: unresponsive, pupils fixed & dilated, no respiratory effort, intubated, hs1 pulses present w/ compressions. Cardiac rhythm is PEA. Neurological: Level of Consciousness is unresponsive. 17:33 CPR assessment: no respiratory effort, intubated, Ambu ventilation, pulses present w/ hs1 compressions. Cardiac rhythm is Sinus Bradycardia. Neurological: Level of Consciousness is unresponsive. Respiratory: Airway via oral intubation. Derm: Skin is mottled, pale. 17:33 Cardiovascular: Pulses are palpable in carotid. hs1 17:37 Cardiac rhythm is Sinus Rhythm. Neurological: Level of Consciousness is unresponsive. hs1 Cardiovascular: Rhythm is sinus rhythm. Derm: Skin is dusky, mottled. 17:44 CPR assessment: pupils fixed & dilated, no respiratory effort, intubated, Ambu hs1 ventilation, pulses present w/ compressions. Cardiovascular: Pulses are palpable in carotid. 17:49 Cardiac rhythm is Sinus Bradycardia. Neurological: Level of Consciousness is hs1 unresponsive. Respiratory: Airway via oral intubation. Derm: Skin is dusky, mottled. 17:52 Cardiac rhythm is Cardiac rhythm is Sinus Rhythm. hs1 17:55 General: Appears emaciated. Cardiovascular: Rhythm is irregular. Respiratory: Airway hs1 via oral intubation. 18:04 General: Appears emaciated. General: TIME OF 1804. Neurological: Level of js13 Consciousness is unresponsive. Cardiovascular: Rhythm is asystole. Respiratory: Airway via oral intubation. Derm: Skin is dusky, mottled, pale. 19:07 General: Verbal report given by Khalida Hernandez RN, Assumed care of patient at this time.. kas2 Vital Signs: 17:31 BP 41 / 21 (auto/); hs1 17:47 BP 67 / 18 (auto/); hs1 17:52 BP 66 / 28 (auto/); hs1 17:52 Pulse 88 MON; Pulse Ox 84% ; hs1 18:04 Pulse 0 MON; js13 Vitals: 17:56 Log In Time N/A - ambulance arrival. hs1 ED Course: 17:05 Patient visited by Chartiy Enriquez, Fire Control Assistant. lbd 17:05 Rebeka Clemons,RN is Primary Nurse. lbd 17:05 Patient moved to Waiting lbd 17:05 Patient moved to 2 lbd 17:12 Assist provider with intubation with 7.5 Fr. ETT. via oral route. Set up intubation hs1 tray. Intubated by Niesha Lamas MD Placement verified by CO2 detector w/ + color change, auscultating bilateral breath sounds. 17:12 Maintain field IV. Dressing intact. Good blood return noted. Site clean & dry. Gauge & js13 site: 20 GAUGE RAC. 17:15 Inserted saline lock: 14 gauge 18 gauge in left forearm antecubital area and blood js13 collected. The patient tolerated the procedure well. BY MATT DEAN RN. 17:29 Niesha Lamas MD is Attending Physician. br1 17:29 Patient visited by Niesha Lamas MD. br1 18:16 Niesha Lamas MD is Pronouncing Provider. br1 18:26 EKG done. (by ED staff). Reviewed by Niesha Lamas MD. tmm1 19:02 EKG-ADULT Returned. EDMS 19:06 Rula Kumar RN is Primary Nurse. kas2 19:07 Patient visited by Rula Kumar RN. kas2 19:16 [facility] Payment Agreement was scanned into [employer] and attached to record. gjb 19:22 Primary Nurse role handed off by Rebeka Clemons,HARISH kb5 08/29 13:02 Other: CHECKLIST FOR PT was scanned into [employer] and attached to record. gb 13:02 T-Sheet-- Draft Copy was scanned into [employer] and attached to record. gb 13:02 ECG/EKG was scanned into [employer] and attached to record. gb 13:03 Rhythm Strip was scanned into [employer] and attached to record. gb 13:03 Radiology Report was scanned into [employer] and attached to record. gb 19:05 portable chest Returned. EDMS Administered Medications: 08/28 15:32 Drug: Atropine 0.5 mg [atropine 0.1 mg/mL injection syringe (5 mL)] Route: IVP; Site: hs1 left forearm; 15:33 Drug: EPINEPHrine 1 mg [epinephrine 0.1 mg/mL injection syringe (10 mL)] Route: IVP; hs1 Site: left forearm; 15:33 Drug: Sodium Bicarbonate 1 amp Route: IVP; Site: left forearm; hs1 17:09 Drug: EPINEPHrine 1 mg [epinephrine 0.1 mg/mL injection syringe (10 mL)] Route: IVP; hs1 Site: left forearm; 17:14 Drug: EPINEPHrine 1 mg [epinephrine 0.1 mg/mL injection syringe (10 mL)] Route: IVP; hs1 Site: left forearm; 17:19 Drug: EPINEPHrine 1 mg [epinephrine 0.1 mg/mL injection syringe (10 mL)] Route: IVP; hs1 Site: left forearm; 17:23 Drug: EPINEPHrine 1 mg [epinephrine 0.1 mg/mL injection syringe (10 mL)] Route: IVP; hs1 Site: left forearm; 17:33 Drug: NS 0.9% 500 ml [sodium chloride 0.9 % intravenous solution] Route: IV; Rate: hs1 bolus; Site: right antecubital; 17:37 Drug: Atropine 0.5 mg [atropine 0.1 mg/mL injection syringe (5 mL)] Route: IVP; Site: hs1 left forearm; 17:46 Drug: EPINEPHrine 1 mg [epinephrine 0.1 mg/mL injection syringe (10 mL)] Route: IVP; hs1 Site: left forearm; 17:46 Drug: Sodium Bicarbonate 1 amp Route: IVP; Site: left antecubital; hs1 17:46 Drug: Atropine 0.5 mg [atropine 0.1 mg/mL injection syringe (5 mL)] Route: IVP; Site: hs1 right antecubital; 17:56 Drug: Norepinephrine (8mg/500mL D5W, 2mcg/min) 2 mcg/min [norepinephrine bitartrate 1 hs1 mg/mL intravenous solution] Route: IVPB; Rate: calculated rate; Site: left forearm; 17:57 Drug: NS 0.9% 1000 ml [sodium chloride 0.9 % intravenous solution] Route: IV; Rate: hs1 bolus; Site: left antecubital; Attachments: 13:03 Rhythm Strip gb RT: 08/28 18:12 CPR Time: 60Minutes. cs15 Order Results: Lab Order: Basic Metabolic Profile; SPEC'M 08/28/16 17:40 Test: GLUCOSE, FASTING; Value: 98; Range: 83-110; Units: MG/DL; Status: F Test: BLOOD UREA NITROGEN; Value: 96; Range: 7-18; Abnormal: Above high normal; Units: MG/DL; Status: F Test: CREATININE FOR GFR; Value: 2.33; Range: 0.70-1.30; Abnormal: Above high normal; Units: MG/DL; Status: F Test: GLOMERULAR FILTRATION RATE; Value: 28.5; Range: >35; Abnormal: Below low normal; Status: F Test: SODIUM LEVEL; Value: 165; Range: 136-145; Abnormal: Above upper panic limits; Units: MEQ/L; Status: F Test: POTASSIUM SERUM; Value: 6.4; Range: 3.5-5.1; Abnormal: Above upper panic limits; Units: MEQ/L; Status: F Test: CHLORIDE LEVEL; Value: 127; Range: 98-107; Abnormal: Above high normal; Units: MEQ/L; Status: F Test: CARBON DIOXIDE LEVEL; Value: 18; Range: 21-32; Abnormal: Below low normal; Units: MEQ/L; Status: F Test: ANION GAP; Value: 20; Range: 8-16; Abnormal: Above high normal; Units: MEQ/L; Status: F Test: CALCIUM LEVEL; Value: 7.8; Range: 8.8-10.2; Abnormal: Below low normal; Units: MG/DL; Status: F Test Note: ; Units are mL/min/1.73 m2 Chronic Kidney Disease Staging per NKF: Stage I & II GFR >=60 Normal to Mildly Decreased Stage III GFR 30-59 Moderately Decreased Stage IV GFR 15-29 Severely Decreased Stage V GFR <15 Very Little GFR Left ESRD GFR <15 on [employer] PERSON Lab Order: CBC with Diff; SPEC'M 08/28/16 17:40 Test: WHITE BLOOD COUNT; Value: 4.9; Range: 4.0-10.0; Units: K/mm3; Status: F Test: RED BLOOD COUNT; Value: 3.83; Range: 4.30-6.10; Abnormal: Below low normal; Units: M/mm3; Status: F Test: HEMOGLOBIN; Value: 10.8; Range: 14.0-18.0; Abnormal: Below low normal; Units: g/dl; Status: F Test: HEMATOCRIT; Value: 39.2; Range: 42.0-52.0; Abnormal: Below low normal; Units: %; Status: F Test: MEAN CORPUSCULAR VOLUME; Value: 102.4; Range: 80.0-96.0; Abnormal: Above high normal; Units: fl; Status: F Test: MEAN CORPUSCULAR HEMOGLOBIN; Value: 28.3; Range: 27.0-33.0; Units: pg; Status: F Test: MEAN CORPUSCULAR HGB CONC; Value: 27.7; Range: 32.0-36.5; Abnormal: Below low normal; Units: g/dl; Status: F Test: RED CELL DISTRIBUTION WIDTH; Value: 13.2; Range: 11.5-14.5; Units: %; Status: F Test: PLATELET COUNT, AUTOMATED; Value: 69; Range: 150-450; Abnormal: Below low normal; Units: k/mm3; Status: F Test: CORRECTED WHITE BLOOD COUNT; Value: 4.5; Units: K/mm3; Status: F Test: RED BLOOD COUNT; Value: 3.83; Range: 4.30-6.10; Abnormal: Below low normal; Units: M/mm3; Status: F Test: HEMOGLOBIN; Value: 10.8; Range: 14.0-18.0; Abnormal: Below low normal; Units: g/dl; Status: F Test: HEMATOCRIT; Value: 39.2; Range: 42.0-52.0; Abnormal: Below low normal; Units: %; Status: F Test: MEAN CORPUSCULAR VOLUME; Value: 102.4; Range: 80.0-96.0; Abnormal: Above high normal; Units: fl; Status: F Test: MEAN CORPUSCULAR HEMOGLOBIN; Value: 28.3; Range: 27.0-33.0; Units: pg; Status: F Test: MEAN CORPUSCULAR HGB CONC; Value: 27.7; Range: 32.0-36.5; Abnormal: Below low normal; Units: g/dl; Status: F Test: RED CELL DISTRIBUTION WIDTH; Value: 13.2; Range: 11.5-14.5; Units: %; Status: F Test: PLATELET COUNT, AUTOMATED; Value: 69; Range: 150-450; Abnormal: Below low normal; Units: k/mm3; Status: F Test: NEUTROPHILS; Value: 34; Range: 35-75; Abnormal: Below low normal; Units: %; Status: F Test: BANDS; Value: 3; Range: < 11; Units: %; Status: F Test: LYMPHOCYTES; Value: 58; Range: 16-52; Abnormal: Above high normal; Units: %; Status: F Test: MONOCYTES; Value: 2; Range: 0-8; Units: %; Status: F Test: ATYPICAL LYMPH; Value: 3; Range: 0-5; Units: %; Status: F Test: NUCLEATED RED BLOOD CELL; Value: 10; Range: 0-0; Abnormal: Above high normal; Units: %; Status: F Test: HYPOCHROMASIA; Value: 1+; Status: F Test: POIKILOCYTOSIS; Value: 1+; Status: F Test: SCHISTOCYTES; Value: 1+; Status: F Test: ESMER CELLS; Value: 1+; Status: F Test: TOXIC VACUOLATION; Value: 1+; Status: F Lab Order: Cardiac Injury Profile; [facility]' 08/28/16 17:40 Test: CPK CREATINE PHOSPHOKINASE; Value: 191; Range: 39-308; Units: U/L; Status: F Test: CK-MB VALUE MASS; Value: 4.9; Range: 0.0-3.6; Abnormal: Above high normal; Units: NG/ML; Status: F Test: MB/CK RELATIVE INDEX; Value: 2.56; Range: < OR =4; Status: F Test Note: ; DIAGNOSIS CRITERIA MMB ng/ml Relative Index (RI) NON-AMI < or = 5 N/A REINOSO ZONE > 5 < or = 4 AMI > 5 > 4 Lab Order: Troponin; SPEC' 08/28/16 17:40 Test: TROPONIN I; Value: 1.88; Range: < 0.10; Abnormal: Above upper panic limits; Units: NG/ML; Status: F Test Note: ; Troponin I Reference Interval for [employer] LOCI: 99th Percentile= 0.00-0.045 ng/ml Risk Stratification: <= 0.10 ng/ml Decreased Risk for Adverse Clinical Events. 0.10-1.50 ng/ml Increased Risk for Adverse Clinical Events. Evaluation of additional criterion and/or repeat testing in 2-6 hours is suggested to rule out myocardial damage. >= 1.50 ng/ml Indicative of Myocardial Injury. Lab Order: -Blood Culture; SPEC'M 08/28/16 17:40 Test: BLOOD CULTURE; Value: No growth after 24 hours . All specimens observed; Status: F Test: BLOOD CULTURE; Value: for 5 days. Results final at that time.; Status: F Test: BLOOD CULTURE; Value: No Growth after 48 hours. All Specimens observed; Status: F Test: BLOOD CULTURE; Value: for 7 days. Results final at that time.; Status: F Lab Order: MAGNESIUM LEVEL; SPEC'M 08/28/16 17:40 Test: MAGNESIUM LEVEL; Value: 3.6; Range: 1.8-2.4; Abnormal: Above high normal; Units: MG/DL; Status: F Lab Order: PHOSPHOROUS LEVEL; SPEC'M 08/28/16 17:40 Test: PHOSPHORUS LEVEL; Value: 8.3; Range: 2.5-4.9; Abnormal: Above high normal; Units: MG/DL; Status: F Lab Order: Fingerstick Blood Sugar; SPEC'M 08/28/16 17:29 Test: BEDSIDE GLUCOSE; Value: 94; Range: 83-110; Units: MG/DL; Status: F Lab Order: PLATELET ESTIMATE; SPEC'M 08/28/16 17:40 Test: PLATELET ESTIMATE; Value: MARKED DECREASE; Range: NORMAL; Status: F Radiology Order: portable chest Test: portable chest REASON FOR EXAMINATION: arrest; CHEST, ONE VIEW:; ; HISTORY: Cardiac arrest.; ; Patchy densities are present in the lung, consistent with bilateral infiltrates; or edema. The heart is upper limits of normal in size. The pulmonary vasculature; is indistinct. An ET tube is present at the nubia.; ; IMPRESSION:; ; 1. Bilateral infiltrates or edema.; ; 2. An ET tube is present at the level of the nubia.; ; ; Signed by; Nate Herron MD 08/30/2016 08:28 A; Radiology Order: EKG-ADULT Test: EKG-ADULT REASON FOR EXAMINATION: dysrhythmia; Stationary ECG Study; [facility] - ED; ; Test Date: 2016-08-28; Pat Name: GARY ASH Department:; Room: -; Gender: M Customer Agent: shana; : 1930 Requested By: NIESHA Russo; Order Number: [id number] Reading MD: Chris Connors; Measurements; Intervals [place]; Rate: 79 P:; CA: 0 QRS: 80; QRSD: 162 T: 96; QT: 461; QTc: 531; Interpretive Statements; ATRIAL FIBRILLATION; INTRAVENTRICULAR CONDUCTION DELAY; MARKED ST ELEVATION, CONSIDER ANTERIOR INJURY; ACUTE OR; NO PRIORS; Electronically Signed On 08-28-2016 18:26:27 EST by Chris Connors; Outcome: 17:12 No special radiology studies were completed. js13 17:43 Code Team Members : Niesha Lamas MD. hs1 18:17 Patient . br1 19:35 Discharge Assessment: Patient in ER department. Rhythm strips are placed in the kas2 patient chart. Outcome Patient . Patient : Time of 18:17 Pronounced by Niesha Lamas MD [facility] to [facility]. Condition: . 19:37 Patient left the ED. [email or web address] Signatures: Dispatcher [employer] EDMS Charity Enriquez, Fire Control Assistant Unit lbd Rosalva Green, Reg Reg gb Andre Mcknight, BOTTOM BRUSHER BOTTOM BRUSHER [id number] Niesha Lamas MD MD br1 Enriqueta Evans RN RN hs1 Rebeka ClemonsRN RN js13 Rufina, Emma, BOTTOM BRUSHER BOTTOM BRUSHER [email or web address] Joel Barrientos,RT RT [email or web address] Tonie Kellogg Kim,RN RN kas2 Corrections: (The following items were deleted from the chart) 17:48 17:33 Cardiac rhythm is PEA hs1 hs1 Chart Complete MTDD
== END 2016-08-28 18:04 | disposition expired ==
LOC: M ED 17:04
DX: I46.9 Cardiac arrest, cause unspecified (principal); Z88.0 Allergy status to penicillin
CPT/HCPCS: 31500; 36415; 71010; 80048; 82550; 82553; 83735; 84100; 84484; 85025; 87040; 92950; 93005; 93041; 99291; J0461